=== PATIENT | female | born 1950 | race Caucasian/White ===

== ENCOUNTER 2022-10-31 19:44 | Observation (INO) | payer MEDICARE, SELFPAY ==
[2022-10-31] VITALS (10 sets, daily range): BP systolic 145–192; BP diastolic 67–113; PULSE 71–155; RESP 12–19; TEMP 36.6–36.8; O2SAT 94–97; BMI 25.7; BMI 26.4
--- NOTE | 2022-10-31 20:04 | EKG12_ITS ---
Test Reason : DYSRHYTHMIA Blood Pressure : / mmHG Vent. Rate : 157 BPM Atrial Rate : 174 BPM P-R Int : 000 ms QRS Dur : 064 ms QT Int : 280 ms P-R-T Axes : 000 065 044 degrees QTc Int : 452 ms Atrial fibrillation Nonspecific ST abnormality Abnormal ECG Confirmed by SHARLENE DORANTES, COY ([id number]), editor sound SAGRARIO CORRALES ([id number]) on 11/01/2022 10:21:42 AM Referred By: YONNY Confirmed By:COY SU MD
--- NOTE | 2022-10-31 20:11 | EX.ED.DYSGE1 ---
HPI History of Present Illness Chief Complaint: Palpitations Informant: patient Narrative Narrative: Presents with sudden palpitations 2 PM after riding her bike for an hour. No chest pains no lightheaded symptoms. No recent cough. History of hypertension on medications. Denies diabetes heart failure or stroke history. She states 2 weeks ago had similar symptoms lasting for 2 hours self-limiting afterwards. She did not get evaluated anywhere. No history of dysrhythmias. Symptoms returned and felt similar today. Prior similar symptoms: Yes PFSH PFSH Medical History (Updated 11/01/22 @ 00:[address] Trevor Cordero DO) HTN (hypertension) Kidney stones Overweight Home Medications lisinopril 10 mg tablet 10 mg PO DAILY 10/31/22 [History Last Taken Unknown] Allergy/AdvReac Type Severity Reaction Status Date / Time No Known Allergies Allergy Verified 10/31/22 23:25 Family History (Updated 10/31/22 @ 23:[address] Meaghan Almonte MD) Mother Hypertension CVA (cerebral vascular accident) Father Heart disease CAD (coronary artery disease) Myocardial infarction Surgical History History of dental surgery Social History (Updated 10/31/22 @ 23:[address] Meaghan Almonte MD) household members: spouse Smoking Status: Never smoker alcohol intake: never substance use type: does not use ROS ROS ED Constitutional Constitutional ED: Denies chills, fever(s) or sweats Eyes Eyes: Denies change in vision ENT ENT ED: Denies dysphagia or sore throat Cardiovascular Cardiovascular: Reports palpitations; Denies chest pain, leg edema or racing heartbeat Respiratory/Chest Respiratory/Chest: Denies cough, dyspnea or dyspnea on exertion Gastrointestinal Gastrointestinal: Denies abdominal pain, diarrhea, nausea or vomiting Genitourinary Genitourinary ED: Denies dysuria, hematuria or urinary frequency Musculoskeletal Musculoskeletal: Denies back pain, extremity pain or neck pain Integumentary Denies rash or wounds Neurologic Neurologic: Denies headache(s), paresthesias or weakness EXAM Physical Exam Const Vital Signs: 10/31/22 19:45 10/31/22 19:56 10/31/22 19:58 Temperature 98.2 F Temperature Source Temporal Pulse Rate 71 138 H Respiratory Rate 16 16 Respiratory Effort Normal Respiratory Pattern Normal Blood Pressure 177/95 H 187/107 H Blood Pressure Mean 122 133 Pulse Ox 97 97 Oxygen Delivery Method Room Air Room Air 10/31/22 20:20 10/31/22 20:26 10/31/22 20:31 Temperature Temperature Source Pulse Rate 155 H 100 105 H Respiratory Rate 16 12 12 Respiratory Effort Respiratory Pattern Blood Pressure 192/89 H 157/99 H 167/107 H Blood Pressure Mean 123 118 127 Pulse Ox 96 96 96 Oxygen Delivery Method Room Air Room Air Room Air 10/31/22 20:37 10/31/22 21:00 10/31/22 22:00 Temperature Temperature Source Pulse Rate 108 H 110 H 90 Respiratory Rate 12 19 H 14 Respiratory Effort Respiratory Pattern Blood Pressure 147/113 H 156/87 H 153/67 H Blood Pressure Mean 124 110 95 Pulse Ox 96 94 96 Oxygen Delivery Method Room Air Room Air Room Air Positive well nourished and well developed General Appearance ED: well developed and NAD HEENT Reports moist mucous membranes normocephalic and atraumatic Eyes PERRL, EOMs intact bilaterally and conjunctivae normal General Eye ED: Yes normal appearance of both eyes Neck no lymphadenopathy and supple General: Negative for tenderness Chest Wall Chest: Negative for tenderness Resp normal respiratory effort and normal air movement Effort and Inspection: symmetric chest movement; Negative for respiratory distress Cardio no murmurs Rate: tachycardic Rhythm: abnormal rhythm Peripheral Pulses: pulses 2+ throughout GI normal to inspection, nondistended, normoactive bowel sounds and non-tender Palpation: Negative for guarding or rebound tenderness present Back/Spine no CVA tenderness and no thoracic nor lumbar tenderness Extremity normal to inspection General Extremety ED: Negative for edema or tenderness General Extremity: Negative for edema Neuro oriented x3 and no sensory deficits noted Sensorium / Orientation: awake and alert Skin no rashes or lesions noted and no wounds MDM MDM MDM Narrative Medical decision making narrative: Interventions / MDM: Differential diagnosis: Cardiac dysrhythmia, palpitations Diagnosis considered but do not suspect: N/A My EKG interpretation: EKG: A-fib RVR 157, no ST or T wave changes QTc 452. Imaging independently reviewed and interpreted by myself: 1 view chest x-ray: No acute process External documents reviewed: N/A Test considered but not ordered:N/A ED course: Patient present A-fib with RVR blood pressure 177 systolic on arrival. She is given Lopressor IV x3 heart rate would go down to the 90s low 100s she was given 50 mg oral metoprolol reevaluation with systolic blood pressure 140. Labs obtain electrolytes were normal she had a TSH of less than 0.01. T4 level is sent and pending. Hemoglobin 14.6. Re-evaluation: stable. Chads 2 Vascore is a 3. Heart rate well controlled still in A-fib on the quality assurance monitor body. I discussed with hospitalist Dr. Almonte for admission to PCU. Free T4 returned normal. She reports with the findings likely subclinical hyperthyroidism. Disposition discussed with patient/family/significant other: Case discussed with consulting clinician: Hospitalist Dr. Alomnte Lab Data Attestation: I reviewed the patient's lab results. Labs: Laboratory Results - last 24 hr 10/31/22 10/31/22 10/31/22 20:10 20:10 20:10 WBC 7.6 RBC 5.05 Hgb 14.6 Hct 43.6 MCV 86.3 MCH 28.9 MCHC 33.5 RDW Std Deviation 39.6 RDW Coeff of Adeline 12.6 Plt Count 267 MPV 9.7 Immature Gran % (Auto) 0.300 Neut % (Auto) 54.3 Lymph % (Auto) 34.0 [place] % (Auto) 8.7 Eos % (Auto) 2.2 Baso % (Auto) 0.5 Absolute Neuts (auto) 4.1 Absolute Lymphs (auto) 2.58 Nucleated RBC % 0 PT 12.1 INR 0.9 APTT 26.2 Sodium 142 Potassium 3.8 Chloride 109 H Carbon Dioxide 25.0 Anion Gap 8 BUN 17 Creatinine 1.04 H Estim Creat Clear Calc 39.26 Est GFR (MDRD) Af Amer 67 Est GFR (MDRD) Non-Af 55 L BUN/Creatinine Ratio 16.3 Glucose 125 H Calcium 9.5 Magnesium TSH < 0.01 L Free T4 10/31/22 10/31/22 20:10 20:10 WBC RBC Hgb Hct MCV MCH MCHC RDW Std Deviation RDW Coeff of Adeline Plt Count MPV Immature Gran % (Auto) Neut % (Auto) Lymph % (Auto) Stafford % (Auto) Eos % (Auto) Baso % (Auto) Absolute Neuts (auto) Absolute Lymphs (auto) Nucleated RBC % PT INR APTT Sodium Potassium Chloride Carbon Dioxide Anion Gap BUN Creatinine Estim Creat Clear Calc Est GFR (MDRD) Af Amer Est GFR (MDRD) Non-Af BUN/Creatinine Ratio Glucose Calcium Magnesium 2.1 TSH Free T4 1.25 Radiography Diagnostic Testing: Clinical Impression(s) from Imaging Studies Chest X-Ray 10/31/22 20:13 IMPRESSION: No acute radiographic abnormalities. Electronically Signed: Vladimir Ayala MD at 20:42 EDT , Discharge Plan Dx/Rx/DC Orders Clinical Impression: Atrial fibrillation with RVR, Subclinical hyperthyroidism Disposition Disposition: Acute Care Hospital [facility] Discharge Date/Time: 10/31/22 23:21
--- NOTE | 2022-10-31 20:13 | RAD_ITS ---
INDICATION: a fib EXAMINATION/TECHNIQUE: X-RAY - XR Chest 1 View COMPARISON: None. FINDINGS: The lungs are clear. Tortuous and calcified thoracic aorta. The heart is not enlarged. No pleural effusion or pneumothorax. Degenerative changes of the thoracic spine. RAD/Chest 1 View (Portable) IMPRESSION: No acute radiographic abnormalities. Electronically Signed: Vladimir Ayala MD at 20:42 EDT ,
[2022-10-31 20:18] LABS: Absolute Lymphocyte Count 2.58 X10^3/uL (0.83-4.51); Absolute Neutrophil Count 4.1 X10^3/uL (2.0-7.7); Basophil# 0.04 X10^3/uL; Basophil% 0.5 % (0-1); Eosinophil# 0.17 X10^3/uL; Eosinophils% 2.2 % (0-5); Hematocrit 43.6 % (37-47); Hemoglobin 14.6 g/dL (12.0-15.0); Lymphocyte # 2.58 X10^3/ul (0.83-4.51); Mean Corp Hgb Conc 33.5 g/dL (32-36); Mean Corpuscular Hgb 28.9 pg (27.0-32.0); Mean Corpuscular Volume 86.3 fL (81-99); Mean Platelet Vol. 9.7 fl (6.2-12.0); Monocyte# 0.66 X10^3/uL; Monocyte% 8.7 % (0-10); NRBC Flagged by Analyzer 0 % (0-5); Neutrophil # 4.12 X10^3/uL (2.7-7.7); Neutrophil % 54.3 % (47-70); Platelet Count 267 K/mm3 (150-450); RBC Distribution Width CV 12.6 % (11.6-14.6); RBC Distribution Width SD 39.6 fl (35.1-43.9); Red Blood Count 5.05 M/mm3 (4.2-5.4); White Blood Count 7.6 K/mm3 (4.4-11.0)
[2022-10-31] MEDS: Metoprolol Tartrate 5 MG/5 ML Vial IV ×3 (20:21→20:34)
[2022-10-31 20:32] LABS: International Normalized Ratio 0.9; Prothrombin Time (Protime)PT. 12.1 SECONDS (11.7-14.9)
[2022-10-31 20:33] LABS: Partial Thromboplast Time 26.2 Seconds (24.1-36.2)
[2022-10-31 20:48] LABS: Anion Gap 8 (5-15); BUN 17 mg/dL (7-18); BUN/Creat Ratio 16.3 RATIO (10-20); Calcium,Total 9.5 mg/dL (8.5-10.1); Chloride 109 mmol/L (98-107); Creatinine, Serum 1.04 mg/dL (0.55-1.02); EST Glomerular Filtration Rate 55 mL/min (>60); Est Glom Filt Rate - Afr Amer 67 mL/min (>60); Estimated Creatinine Clearance 39.26 ml/min; Glucose 125 mg/dL (74-106); Potassium 3.8 mmol/L (3.5-5.1); Sodium Level 142 mmol/L (136-145); Thyroid Stim Hormone (TSH) < 0.01 uIU/mL (0.358-3.74)
[2022-10-31] MEDS: Metoprolol Tartrate 25 MG Tablet 50 MG PO (20:59)
[2022-10-31 22:18] LABS: T4 Free Direct 1.25 ng/dL (0.76-1.46)
--- NOTE | 2022-10-31 22:27 | HP.PCM.HOS_ITS ---
HPI - General General Date of Admission: 10/31/22 Date of Service: 10/31/22 Chief Complaint: Palpitations, recurrent. HPI Narrative The patient is a 72 y/o F w/ PMHx: HTN, ? CKD who presents to the [facility] ED on 10/31/22 with history of onset of sudden palpitations approximately 2 PM following riding her bike with no lightheadedness, dizziness or chest discomfort with similar episode approximately 2 weeks prior which lasted 2 hours and resol ed following this however given her symptoms returned prompted ED evaluation. Again she states she remained asymptomatic except for sensation of palpitations/racing heart. She notes aside from these 2 events this is never happened prior. Work-up in the ED included T98.2, heart rate initially 71 h owever increased up to 155, most recently 110, BP initially 177/95 with most recent repeat 156/87, respiratory rate 16, 97% on room air, CBC with WBC 7.6, hemoglobin 14.6, platelet 267 without marked shift, unremarkable coags, BMP with chloride 109, BUN/creatinine 17/1.04, glucose 125, TSH less than 0.01 however free T4 1.25, chest x-ray with no acute cardiopulmonary findings, EKG with new onset atrial fibrillation with RVR with no acute evidence of ischemia. In the ED patient ministered IV Lopressor as well as metoprolol tartrate 50 mg p.o. x1. [facility] Medical History (Updated 10/31/22 @ 23:[address] Meaghan Almonte MD) HTN (hypertension) Kidney stones Overweight Home Medications lisinopril 10 mg tablet 10 mg PO DAILY 10/31/22 [History Last Taken Unknown] Allergy/AdvReac Type Severity Reaction Status Date / Time No Known Allergies Allergy Verified 10/31/22 19:46 Family History (Updated 10/31/22 @ 23:[address] Meaghan Almonte MD) Mother Hypertension CVA (cerebral vascular accident) Father Heart disease CAD (coronary artery disease) Myocardial infarction Surgical History (Updated 10/31/22 @ 23:[address] Meaghan Almonte MD) History of dental surgery Social History (Updated 10/31/22 @ 23:[address] Meaghan Almonte MD) household members: spouse Smoking Status: Never smoker alcohol intake: never substance use type: does not use ROS ROS Narrative Admission Review of Systems: CONSTITUTIONAL: No weight loss, fever, chills, weakness or fatigue. HEENT: Eyes: No visual loss, blurred vision, double vision or yellow sclerae. Ears, Nose, Throat: No hearing loss, sneezing, congestion, runny nose or sore throat. SKIN: No rash or itching, lesions, wounds. CARDIOVASCULAR: + Palpitations. No chest pain, chest pressure or chest discomfort, edema, orthopnea, syncopal events. RESPIRATORY: No shortness of breath, cough or sputum, wheezing, hemoptysis. GASTROINTESTINAL: No anorexia, nausea, vomiting or diarrhea, abdominal pain, melena, BRBPR. GENITOURINARY: No dysuria, frequency, urgency or retention. NEUROLOGICAL: No headache, dizziness, syncope, paralysis, ataxia, numbness or tingling in the extremities, focal weakness, change in bowel or bladder control, seizure. MUSCULOSKELETAL: + muscle, back pain, joint pain or stiffness. HEMATOLOGIC: No anemia, bleeding or bruising. LYMPHATICS: No enlarged nodes. No history of splenectomy. PSYCHIATRIC: No history of depression or anxiety. ENDOCRINOLOGIC: No reports of sweating, cold or heat intolerance. No polyuria or polydipsia. ALLERGIES: No history of asthma, hives, eczema or rhinitis. Vital Signs Vital Signs Vital Signs: 10/31/22 19:45 10/31/22 19:56 10/31/22 19:58 Temperature 98.2 F Temperature Source Temporal Pulse Rate 71 138 H Respiratory Rate 16 16 Respiratory Effort Normal Respiratory Pattern Normal Blood Pressure 177/95 H 187/107 H Blood Pressure Mean 122 133 Pulse Ox 97 97 Oxygen Delivery Method Room Air Room Air 10/31/22 20:20 10/31/22 20:26 10/31/22 20:31 Temperature Temperature Source Pulse Rate 155 H 100 105 H Respiratory Rate 16 12 12 Respiratory Effort Respiratory Pattern Blood Pressure 192/89 H 157/99 H 167/107 H Blood Pressure Mean 123 118 127 Pulse Ox 96 96 96 Oxygen Delivery Method Room Air Room Air Room Air 10/31/22 20:37 10/31/22 21:00 10/31/22 22:00 Temperature Temperature Source Pulse Rate 108 H 110 H 90 Respiratory Rate 12 19 H 14 Respiratory Effort Respiratory Pattern Blood Pressure 147/113 H 156/87 H 153/67 H Blood Pressure Mean 124 110 95 Pulse Ox 96 94 96 Oxygen Delivery Method Room Air Room Air Room Air Weight Weight: 145 lb 6 oz Body Mass Index (BMI) 25.7 Physical Exam Narrative Physical Examination: General: Awake, alert, oriented x 3 and cooperative, seated upright in the ED bed in no apparent distress, palpitations improving with rate control. Skin: Normal color, normal turgor, no icterus, no cyanosis. HEENT: AT/NC, EOMI, PERRLA, MMM, no carotid bruits or JVD noted. Lungs: CTA bilaterally, moderate effort, mild decrease BL bases, no rales, ronchi or wheezing. Heart: Irregular, currently rate controlled; no gallop, rub audible. Abdomen: Soft, overweight, NTTP, ND, normal BS, no HSM. Extremities: No cyanosis, clubbing, or edema. Neurological: Patient awake, alert, oriented as noted, cognitive function intact; pupils equally reactive to light and accommodation, cranial nerves II- XII grossly normal, moving all 4 extremities, no focal deficits, strength preserved. Psychiatric: Affect appears normal, no acute evidence of depressive or anxiety feelings. Results Lab / Micro Data Result Diagrams: 10/31/22 20:10 10/31/22 20:10 Labs: Laboratory Results - last 24 hr 10/31/22 20:10: WBC 7.6, RBC 5.05, Hgb 14.6, Hct 43.6, MCV 86.3, MCH 28.9, MCHC 33.5, RDW Std Deviation 39.6, RDW Coeff of Adeline 12.6, Plt Count 267, MPV 9.7, Immature Gran % (Auto) 0.300, Neut % (Auto) 54.3, Lymph % (Auto) 34.0, [place] % (Auto) 8.7, Eos % (Auto) 2.2, Baso % (Auto) 0.5, Absolute Neuts (auto) 4.1, Absolute Lymphs (auto) 2.58, Nucleated RBC % 0 10/31/22 20:10: PT 12.1, INR 0.9, APTT 26.2 10/31/22 20:10: Sodium 142, Potassium 3.8, Chloride 109 H, Carbon Dioxide 25.0, Anion Gap 8, BUN 17, Creatinine 1.04 H, Estim Creat Clear Calc 39.26, Est GFR (MDRD) Af Amer 67, Est GFR (MDRD) Non-Af 55 L, BUN/Creatinine Ratio 16.3, Gluc ose 125 H, Calcium 9.5, TSH < 0.01 L 10/31/22 20:10: Free T4 1.25 Radiology Impression Chest X-Ray 10/31/22 20:13 IMPRESSION: No acute radiographic abnormalities. Electronically Signed: Vladimir Ayala MD at 20:42 EDT , Assessment & Plan Assessment/Plan (1) Atrial fibrillation with RVR: (2) Subclinical hyperthyroidism: PLAN: Plan The patient is a 72 y/o F w/ PMHx: HTN, ? CKD who presents to the [facility] ED on 10/31/22 with history of onset of sudden palpitations approximately 2 PM following riding her bike with no lightheadedness, dizziness or chest discomfort with similar episode approximately 2 weeks prior which lasted 2 hours and resolved following this however given her symptoms returned prompted ED evaluation. #1. New Onset Paroxsymal atrial fibrillation w/ RVR: EKG in ED w/ atrial fibrillation w/ RVR. Patient administered IV Lopressor and oral in ED. Will admit to PCU, maintain on telemetry, obtain cardiac enzyme serial set, obtain magnesium level, obtain ECHO, TSH/FT4 obtained with as noted subclinical hyperthyroidism. CHADs scoring low thus could consider aspiration or anticoagulation, however in the interim pending further work-up will maintain on therapeutic lovenox. Given new onset to assure early follow-up per patient and family preference will request Cardiology consultation. #2. Subclinical Hyperthyroidism: TSH > 0.01, free T4 1.25 thus would be consistent with subclinical hyperthyroidism but given presentation pending work- up as noted #1 may need to consider initiation of more early further evaluation but will await work-up #1 as noted. #3. Possible Chronic Kidney Disease Stage III unclear subtype based on current presentation: Admission BUN/Cr 17/1.04, unclear baseline, unclear if this is acute or if patient does have underlying chronic kidney disease, GFR currently 55, will repeat level in a.m. to further ascertain. #4. Hypertension: Continue home regimen including lisinopril, will maintain on oral metoprolol given responses noted #1 with further dose adjustments as needed, PRN hydralazine. #5. Overweight: Weight loss and lifestyle changes encouraged. #6. DVT prophylaxis: We will maintain on therapeutic Lovenox pending further evaluation as noted. #7. CODE status: Patient does not have healthcare power of contract attorney nor living will in place. Her who is present however she notes would be her decision-maker if she was unable. Discussed CODE status at length including difference between FULL code, DNR-CCA and DNR-CC status. Following discussions about the differences in these status, requested Full Code status. Advanced Care Planning Face to Face Time: 16 minutes. Admission Evaluation Time spent evaluating chart, patient history, patient e valuation, care planning and discussion with specialists: 55 minutes. Charges/Coding Visit Charges Inpatient E&M: 57894 Init Hosp L2 Procedures Hospitalists Procedures: 66737 Advncd Care Plan 30 Min
[2022-10-31 22:58] LABS: Magnesium 2.1 mg/dL (1.6-2.6)
--- NOTE | 2022-10-31 23:18 | ECHOD_ITS ---
Reason For Study: ATRIAL FIB Procedure This was a 2D Doppler, Color Flow transthoracic echocardiogram. Exam performed portable in patient room. Left Ventricle Normal LV size. Left ventricular systolic function is normal. The estimated ejection fraction is 65 %. Normal diastology for age. No regional wall motion abnormalities noted. Right Ventricle Normal RV size. Normal systolic function. Atria Normal left atrium. Normal right atrium. Mitral Valve Normal mitral valve. Tricuspid Valve Normal tricuspid valve. Aortic Valve Trisinus/trileaflet aortic valve. Normal aortic valve. Pulmonic Valve Normal pulmonic valve. Great Vessels Normal aortic root. The pulmonary artery is normal size. Normal inferior vena cava. Pericardium/Pleural No pericardial effusion. MMode/2D Measurements & Calculations LVIDd: 4.2 cm IVSd: 0.79 cm LVOT diam: 2.0 cm LVIDs: 2.5 cm LVPWd: 0.71 cm LVOT area: 3.1 cm2 RVDd: 2.6 cm FS: 39.9 % Ao root diam: 2.7 cm LAV(MOD-bp): 43.9 ml LVAd ap4: 19.8 cm2 LAV(MOD-bp) Indexed: 26.0 ml/m2 LVLd ap4: 7.2 cm LAV(MOD-sp2): 38.5 ml EDV(MOD-sp4): 44.5 ml LAV(MOD-sp4): 47.3 ml EDV(sp4-el): 46.0 ml LVAs ap4: 10.1 cm2 LVLs ap4: 5.9 cm ESV(MOD-sp4): 15.5 ml ESV(sp4-el): 14.7 ml EF(MOD-sp4): 65.2 % EF(sp4-el): 68.0 % SV(MOD-sp4): 29.0 ml SV(sp4-el): 31.3 ml LA A4 area: 17.9 cm2 LA dimension(2D): 3.3 cm RA A4 area: 15.2 cm2 Time Measurements MV dec time: 0.18 sec Doppler Measurements & Calculations MV E max jey: 94.3 cm/sec Lat Peak E' Jey: 13.3 cm/sec Med Peak E' Jey: 7.1 cm/sec MV A max jey: 75.3 cm/sec E/E' lat: 7.1 E/E' med: 13.3 MV E/A: 1.3 MV V2 max: 102.1 cm/sec Ao V2 max: 212.0 cm/sec MV max P.2 mmHg MV dec slope: 523.2 cm/sec2 Ao max P.0 mmHg MV V2 mean: 65.2 cm/sec Ao V2 mean: 143.7 cm/sec MV mean P.9 mmHg Ao mean P.4 mmHg MV V2 VTI: 27.2 cm Ao V2 VTI: 45.9 cm AV (velocity ratio): 0.64 MVA(VTI): 3.3 cm2 KERI(I,D): 2.0 cm2 KERI(V,D): 1.9 cm2 LV V1 max: 132.0 cm/sec SV(LVOT): 90.0 ml LV V1 max P.0 mmHg LV V1 mean P.2 mmHg LV V1 mean: 97.2 cm/sec LV V1 VTI: 29.3 cm ECHO/Echo Complete Interpretation Summary Normal LV size. Left ventricular systolic function is normal. The estimated ejection fraction is 65 %. Structurally normal valves. Ordering Physician: Meaghan Almonte Referring Physician: JUNG FUNK Performed By: Sandee Houston RCS
[2022-10-31] MEDS: 0.9% Normal Saline 1,000 ML 100 ML IV (23:32)
[2022-10-31] MEDS: 0.9% Saline Lock 10 ML Syringe IV (23:32)
[2022-10-31] MEDS: Enoxaparin 80 MG/0.8 ML Syringe 70 MG SC (23:40)
[2022-11-01 00:06] LABS: Troponin-I HS 8 pg/mL (3.0-54.0)
[2022-11-01 01:25] LABS: Troponin-I HS 10 pg/mL (3.0-54.0)
[2022-11-01 05:00] VITALS: BP 150/78; PULSE 82; RESP 18; TEMP 36.7; O2SAT 96
[2022-11-01 05:11] VITALS: BMI 26.9
[2022-11-01 06:24] LABS: Absolute Lymphocyte Count 2.22 X10^3/uL (0.83-4.51); Absolute Neutrophil Count 2.9 X10^3/uL (2.0-7.7); Basophil# 0.02 X10^3/uL; Basophil% 0.3 % (0-1); Eosinophil# 0.16 X10^3/uL; Eosinophils% 2.7 % (0-5); Hematocrit 41.5 % (37-47); Hemoglobin 13.6 g/dL (12.0-15.0); Lymphocyte # 2.22 X10^3/ul (0.83-4.51); Mean Corp Hgb Conc 32.8 g/dL (32-36); Mean Corpuscular Hgb 28.9 pg (27.0-32.0); Mean Corpuscular Volume 88.1 fL (81-99); Monocyte# 0.52 X10^3/uL; Monocyte% 8.9 % (0-10); NRBC Flagged by Analyzer 0 % (0-5); Neutrophil # 2.91 X10^3/uL (2.7-7.7); Neutrophil % 49.9 % (47-70); Platelet Count 242 K/mm3 (150-450); RBC Distribution Width CV 12.6 % (11.6-14.6); RBC Distribution Width SD 40.7 fl (35.1-43.9); Red Blood Count 4.71 M/mm3 (4.2-5.4); White Blood Count 5.8 K/mm3 (4.4-11.0)
--- NOTE | 2022-11-01 06:44 | EKG12_ITS ---
Test Reason : CONVERTED TO NORMAL SYNUS Blood Pressure : / mmHG Vent. Rate : 075 BPM Atrial Rate : 075 BPM P-R Int : 158 ms QRS Dur : 070 ms QT Int : 376 ms P-R-T Axes : 074 061 055 degrees QTc Int : 419 ms Normal sinus rhythm Normal ECG When compared with ECG of 31-OCT-2022 19:52, MANUAL COMPARISON REQUIRED, DATA IS UNCONFIRMED Confirmed by SHARLENE DORANTES, COY ([id number]), video editor SAGRARIO CORRALES ([id number]) on 11/02/2022 9:07:05 AM Referred By: RIMMA Confirmed By:COY SU MD
[2022-11-01 07:00] LABS: ALB/GLOB Ratio 0.9 RATIO (0.9-2.4); AST(SGOT) 19 U/L (15-37); Alanine Aminotransfer ALT/SGPT 31 U/L (13-56); Albumin, Serum 3.1 g/dL (3.2-5.0); Alkaline Phosphatase 66 U/L (45-117); Anion Gap 7 (5-15); BUN 20 mg/dL (7-18); BUN/Creat Ratio 27.6 RATIO (10-20); Calcium,Total 8.6 mg/dL (8.5-10.1); Chloride 113 mmol/L (98-107); Cholesterol 243 mg/dL (200); Creatinine, Serum 0.72 mg/dL (0.55-1.02); EST Glomerular Filtration Rate 84 mL/min (>60); Est Glom Filt Rate - Afr Amer 101 mL/min (>60); Estimated Creatinine Clearance 39.04 ml/min; Globulin 3.3 g/dL (2.2-4.2); Glucose 116 mg/dL (74-106); High Density Lipoprotein 47 mg/dL; Potassium 3.6 mmol/L (3.5-5.1); Protein, Total 6.4 g/dL (6.4-8.2); Sodium Level 144 mmol/L (136-145); Triglycerides 121 mg/dL; Troponin-I HS 9 pg/mL (3.0-54.0); Very Low Density Lipoprotein 24 mg/dL (5-40)
[2022-11-01 07:05] VITALS: O2SAT 96
[2022-11-01 09:26] VITALS: BP 148/57; PULSE 83; RESP 16; TEMP 36.7; O2SAT 95
[2022-11-01 09:32] VITALS: BP 148/57; PULSE 83
[2022-11-01] MEDS: Enoxaparin 80 MG/0.8 ML Syringe 70 MG SC (09:32)
[2022-11-01] MEDS: Metoprolol Tartrate 25 MG Tablet PO (09:32)
[2022-11-01] MEDS: Lisinopril 10 MG Tablet PO (09:33)
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
--- NOTE | 2022-11-01 14:30 | DCINST_ITS ---
Discharge Instructions Diet Discharge Diet: No restrictions Activity Discharge Activity: Return to Normal Activity Weight Bearing Status: Full weight bearing Follow Up Care Test Results: Test results from this visit will be discussed in further detail at your follow- up appointment, if applicable. Discharge Plan Admission Admit Date/Time: 10/31/22 22:35 Primary Reason for Your Visit: Atrial fibrillation Attending Provider: Trey Zapata Primary Care Provider: Hilary Ku Consulting Providers: Sheree Biswas ; Meaghan Almonte Instructions Additional Instructions / Restrictions: Do not take any ibuprofen or Aleve or arthritis medication while on Eliquis, t mckay Tylenol only for pain If you have any abnormal bleeding in the stool, urine, or if you throw up blood or have a severe nosebleed, contact your physician You will need your thyroid lab tests rechecked in 3 to 4 weeks Discharge Orders/Prescriptions Prescriptions: New Eliquis 5 mg Tablet 5 mg PO BID Qty: 0 0RF metoprolol tartrate 25 mg Tablet 25 mg PO BID Qty: 0 0RF Continued lisinopril 10 mg tablet 10 mg PO DAILY Label Comments: TAKE ONE TABLET BY MOUTH DAILY IN THE EVENING Referrals / Follow Up: Hadley Nguyen MD [Med Staff - Active Staff] - See Referral Note (As directed) Hilary Ku PA [Primary Care Provider] - Within 2 Weeks Disposition Disposition (needs filled in before D/C Order can be placed): Home, Self Care
[2022-11-01 14:37] VITALS: BP 148/61; PULSE 73; RESP 16; TEMP 36.7; O2SAT 97
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
--- NOTE | 2022-11-01 15:27 | CASEMGMT ---
RN CM notified by hospitalist of Eliquis cost at discharge. First fill will be $150 and then $47 after. RN CM in to patient's room to discuss discharge needs. Patient denied needs at discharge. [employer] savings card provided to patient. Patient had no further questions or concerns at this time.
--- NOTE | 2022-11-01 15:32 | PHA.DC.MC ---
Pharmacy Service has performed discharge medication reconciliation and counseling for this patient. 1. APIXABAN 5MG PO BID 2. METOPROLOL TARTRATE 25MG PO BID The patient's discharge medication list was reviewed for discrepancies and discrepancies were resolved. Home Medications lisinopril 10 mg tablet 10 mg PO DAILY 10/31/22 apixaban 5 mg tablet (Eliquis) 5 mg PO BID #0 tabs 11/01/22 metoprolol tartrate 25 mg tablet 25 mg PO BID #0 tabs 11/01/22 The patient was counseled on the following discharge medications and changes in medications for homegoing were reviewed. The Reason for Use, instructions for use, and potential side effects were reviewed for all new medications. The patient's questions regarding all of their medications were answered. The patient was able to verbally demonstrate an understanding of their discharge medications.
== END 2022-11-01 15:00 | disposition home or self-care (01) ==
LOC: ED 22:18 → PCU 22:41
PROVIDERS: Admitting Provider Family Medicine; Emergency Provider Emergency Medicine; Visit Provider Internal Medicine
DX: I48.91 Unspecified atrial fibrillation (principal); E05.90 Thyrotoxicosis, unspecified without thyrotoxic crisis or storm; Z79.899 Other long term (current) drug therapy; I10 Essential (primary) hypertension
CPT/HCPCS: 36415; 71045; 80048; 80053; 80061; 83735; 84439; 84443; 84484; 85025; 85610; 85730; 93005; 93306; 94668; 96361; 96372; 96374; 99221; 99285; J7030; A4216; G0378

== ENCOUNTER 2023-04-12 17:24 | Emergency (ER) | payer MEDICARE, SELFPAY ==
[2023-04-12 17:27] VITALS: BP 212/83; PULSE 79; RESP 18; TEMP 36.1; O2SAT 97; BMI 25.4
[2023-04-12 17:36] VITALS: BP 202/89; PULSE 76
--- NOTE | 2023-04-12 17:55 | EDS_ITS ---
HPI History of Present Illness Chief Complaint: Hypertension Narrative Narrative: 72-year-old female presenting with elevated blood pressures. She is asymptomatic of this except for maybe him some mild flushing. Denies headache, nausea, paresthesia, chest pain, palpitations, shortness of breath. Patient dates she p.o. take her atenolol last night which is 25 mg. She states he called the nurse practitioner today and was told to double her lisinopril to 20 mg today. She told her that if her blood pressure did not come down to go to the emergency room. Patient states he took 20 mg of lisinopril at 230. She states her blood pressure did not come down in the last 3 hours so she came to the emergency room. Again she is asymptomatic. [facility] Medical History Atrial fibrillation with RVR Essential hypertension HTN (hypertension) Kidney stones Overweight Subclinical hyperthyroidism Home Medications lisinopril 10 mg tablet 10 mg PO DAILY 10/31/22 [History Last Taken Unknown] aspirin 81 mg tablet,delayed release (Adult Low Dose Aspirin) 81 mg PO DAILY 01/04/23 [History Last Taken Unknown] atenolol 25 mg tablet 25 mg PO QHS 04/12/23 [History Last Taken Unknown] Allergy/AdvReac Type Severity Reaction Status Date / Time No Known Allergies Allergy Verified 04/12/23 17:26 Family History Mother Hypertension CVA (cerebral vascular accident) Father Heart disease CAD (coronary artery disease) Myocardial infarction Surgical History History of dental surgery Social History household members: spouse Smoking Status: Never smoker alcohol intake: never substance use type: does not use ROS ROS ED Constitutional Constitutional ED: Denies chills, fever(s) or sweats Eyes Eyes: Denies blurry vision or change in vision ENT ENT ED: Denies ear pain or sore throat Cardiovascular Cardiovascular: Denies chest pain, palpitations or racing heartbeat Respiratory/Chest Respiratory/Chest: Denies cough, dyspnea or sputum Gastrointestinal Gastrointestinal: Denies abdominal pain, constipation, diarrhea, nausea or vomiting Genitourinary Genitourinary ED: Denies dysuria, hematuria or urinary frequency Musculoskeletal Musculoskeletal: Denies arthralgias, myalgias or neck pain Integumentary Denies abscess, Abrasions or rash Neurologic Neurologic: Denies headache(s), paresthesias or weakness Psychiatric Psychiatric: Denies anxiety, depression, suicidal ideation or suicidal thoughts Endocrine Endocrinology: Denies polydipsia or polyuria EXAM Physical Exam Const Vital Signs: 04/12/23 17:27 04/12/23 17:36 04/12/23 17:37 Temperature 97 F L Temperature Source Temporal Pulse Rate 79 76 Respiratory Rate 18 Respiratory Effort Normal Respiratory Pattern Normal Blood Pressure 212/83 H 202/89 H Blood Pressure Mean 126 126 Pulse Ox 97 Oxygen Delivery Method Room Air Positive well nourished General Appearance ED: NAD HEENT Reports moist mucous membranes Eyes PERRL and EOMs intact bilaterally Resp normal respiratory effort and clear to auscultation bilaterally Auscultation: Negative for rales, rhonchi or wheezes Cardio regular rate and regular rhythm GI normal to inspection, nondistended, normoactive bowel sounds Neuro oriented x3 and CN's II-XII intact bilaterally Sensorium / Orientation: alert Motor Exam: strength 5/5 throughout Psych mental status grossly normal Skin no rashes or lesions noted MDM MDM MDM Narrative Medical decision making narrative: Patient presenting with elevated blood pressures today. She states he did not check her blood pressure yesterday so she is not sure where she was at. She missed her dose of atenolol 25 mg p.o. nightly and has doubled her lisinopril about 3 hours ago. Patient's blood pressure is starting to come down. She is asymptomatic of this. She does not have any findings on physical exam and otherwise her vitals are stable. Discussed with her that the lisinopril may needs more time to start taking effect. We discussed taking her atenolol at bedtime and then taking half of her lisinopril in the morning and half of it in the evening. She will keep a blood pressure diary. She reports to me that her primary care physician is going to put her on 40 mg of lisinopril at some point tomorrow. I recommended she follow-up with her for those changes. Impression: 1. Hypertension Lab Data Attestation: I reviewed the patient's lab results. Discharge Plan Triage Chief Complaint: Hypertension ED Provider: Mark Negrete Dx/Rx/DC Orders Instructions: ED Hypertension, Established Prescriptions: No Action aspirin [Adult Low Dose Aspirin] 81 mg tablet,delayed release (DR/EC) 81 mg PO DAILY lisinopril 10 mg tablet 10 mg PO DAILY Patient Comments: TAKE ONE TABLET BY MOUTH DAILY IN THE EVENING atenolol 25 mg tablet 25 mg PO QHS Primary Care Provider: Hilary Ku Referrals: Hilary Ku PA [Primary Care Provider] - Disposition Disposition: Home, Self Care
[2023-04-12 18:00] VITALS: BP 198/89; RESP 18; O2SAT 99
== END 2023-04-12 18:01 | disposition home or self-care (01) ==
LOC: ED 17:53
PROVIDERS: Emergency Provider Student in an Organized Health Care Education/Training Program; Visit Provider Student in an Organized Health Care Education/Training Program
DX: I10 Essential (primary) hypertension (principal); Z79.899 Other long term (current) drug therapy
CPT/HCPCS: 99282

== ENCOUNTER → 2024-04-25 | Outpatient (CLI) | payer MEDICARE, SELFPAY | END | disposition home or self-care (01) | LOC: PSN 06:44 | PROVIDERS: Referring Provider Podiatrist Foot & Ankle Surgery; Visit Provider Podiatrist Foot & Ankle Surgery | DX: M79.2 Neuralgia and neuritis, unspecified (principal); M79.604 Pain in right leg; M79.605 Pain in left leg | CPT/HCPCS: 95886; 95912 ==

== ENCOUNTER 2024-10-13 21:17 | Emergency (ER) | payer MEDICARE, SELFPAY ==
[2024-10-13 21:17] VITALS: BP 199/83; PULSE 91; RESP 16; TEMP 36; O2SAT 97; BMI 24.3
--- NOTE | 2024-10-13 21:35 | EKG12_ITS ---
Test Reason : HTN Blood Pressure : */* mmHG Vent. Rate : 80 BPM Atrial Rate : 80 BPM P-R Int : 158 ms QRS Dur : 70 ms QT Int : 378 ms P-R-T Axes : 82 52 38 degrees QTcB Int : 435 ms Normal sinus rhythm Normal ECG Confirmed by Merrick Moon ([id number]), editorial writer SAGRARIO CORRALES ([id number]) on 10/19/2024 1:01:05 PM Referred By: SAN[place]ORD Confirmed By: Merrick Moon
[2024-10-13 21:42] LABS: Absolute Lymphocyte Count 1.66 X10^3/uL (0.83-4.51); Absolute Neutrophil Count 3.7 X10^3/uL (2.0-7.7); Basophil# 0.03 X10^3/uL; Basophil% 0.5 % (0-1); Eosinophil# 0.27 X10^3/uL; Eosinophils% 4.4 % (0-5); Hematocrit 38.6 % (37-47); Lymphocyte # 1.66 X10^3/ul (0.83-4.51); Lymphocyte % 26.9 % (19-41); Mean Corp Hgb Conc 36.3 g/dL (32-36); Mean Corpuscular Hgb 32.5 pg (27.0-32.0); Mean Corpuscular Volume 89.6 fL (81-99); Mean Platelet Vol. 9.3 fl (6.2-12.0); Monocyte# 0.49 X10^3/uL; NRBC Flagged by Analyzer 0 % (0-5); Neutrophil # 3.69 X10^3/uL (2.7-7.7); Neutrophil % 59.9 % (47-70); Platelet Count 257 K/mm3 (150-450); RBC Distribution Width CV 13.2 % (11.6-14.6); RBC Distribution Width SD 43.6 fl (35.1-43.9); Red Blood Count 4.31 M/mm3 (4.2-5.4); White Blood Count 6.2 K/mm3 (4.4-11.0)
--- NOTE | 2024-10-13 21:42 | RAD_ITS ---
PROCEDURE: CHEST 1 VIEW (PORTABLE) 10/13/2024 REASON FOR EXAM: CHEST PAIN TECHNIQUE: Frontal view of the chest. COMPARISON: 10/31/2022 FINDINGS: Hardware: None Heart: The heart size is normal. Lungs: No focal consolidation. No pneumothorax. No pleural effusion. Mild bibasilar atelectasis. Bones: The bones are unremarkable. Other: RAD/Chest 1 View (Portable) IMPRESSION: No Acute Findings. Reading Location: [facility]
[2024-10-13 21:55] LABS: Prothrombin Time (Protime)PT. 12.9 SECONDS (11.7-14.9)
[2024-10-13 22:04] LABS: Anion Gap 15 (5-15); BUN 18 mg/dL (4-19); BUN/Creat Ratio 17.1 RATIO (10-20); Carbon Dioxide 20.1 mmol/L (21.0-32.0); Chloride 104 mmol/L (98-108); Creatinine, Serum 1.03 mg/dL (0.70-1.20); EST Glomerular Filtration Rate 56 (>60); Estimated Creatinine Clearance 38.44 ml/min (50-250); Glucose 122 mg/dL (70-99); Potassium 3.8 mmol/L (3.3-5.1); Sodium Level 139 mmol/L (133-145); Troponin T High Sensitivity 10 ng/L (<=14)
[2024-10-13 22:09] VITALS: BP 163/78; PULSE 70; RESP 14; O2SAT 97
--- NOTE | 2024-10-13 22:10 | EDS_ITS ---
HPI History of Present Illness Chief Complaint: Hypertension Narrative Narrative: Chief complaint and HPI: Hypertension and chest pressure. 74-year-old female with past medical history of CAD status post PCI 09/08/2024 at [facility], atrial fibrillation, HTN presents for evaluation of hypertension and chest pressure. Patient states she has been doing well since her PCI. She has been taking all of her medication. She states this morning she felt off in which she took her blood pressure. She states her SBP was in the 190s. She states that she took her morning medications and her blood pressure improved. She states this evening she felt off again with some mild chest pressure. She states she took her blood pressure. SBP in the 190s. She took her evening lisinopril and a nitroglycerin. She currently denies any symptoms or chest pressure. She states all her symptoms have resolved. She denies any fever, chills, shortness of breath, cough, abdominal pain, nausea, vomiting. Review of systems: See HPI Medications: As listed on the chart Allergies: As listed on the chart PFSH: Per chart Vital signs: As listed on the chart. Reviewed. Physical exam: Gen: A&O x3, NAD Head: Normocephalic, atraumatic Eyes: No sclera icterus, conjunctiva clear ENT: Moist mucous membranes Neck: Trachea midline, No JVD CV: RRR, no murmurs, no peripheral edema Resp: Lungs CTA BL, no w/r/c GI: Abd soft, non-distended, non-tender, no r/r/g Musc: Full ROM, no deformity Skin: Warm, dry Neuro: Alert, oriented, grossly intact, sensation intact Psych: Cooperative, appropriate mood and affect [facility] Medical History (Updated 10/14/24 @ 00:[address] Chaz Ansari, DO) Essential hypertension Subclinical hyperthyroidism Atrial fibrillation with RVR Overweight HTN (hypertension) Kidney stones Home Medications ?Medication ?Instructions ?Recorded ?Last Taken ?Type lisinopril 10 mg tablet 20 mg PO BID 04/27/23 Unknow n History anastrozole 1 mg tablet 1 mg PO DAILY 10/13/2410/13 History aspirin 81 mg chewable tablet 1 tab PO DAILY 10/13/24 Unknown History atorvastatin 80 mg tablet 80 mg PO QHS 10/13/24 Unknow n History carvedilol 3.125 mg tablet 3.125 mg PO BID 10/13/24 Un known History clopidogrel 75 mg tablet 75 mg PO DAILY 10/13/24 Unkn own History isosorbide mononitrate 30 mg 30 mg PO DAILY 10/13/24 U nknown History tablet,extended release 24 hr nitroglycerin 0.4 mg sublingual 0.4 mg sublingual pauline na 10/13/24 Unknown History tablet pantoprazole 40 mg tablet,delayed 40 mg PO 10/13/24 Un known History release spironolactone 25 mg tablet 25 mg PO DAILY 10/13/24 Un known History thyroid (pork) 30 mg tablet (INVESTIGATIVE AGENT 30 mg PO DAILY 5 Unknown History Thyroid) Allergy/AdvReac Type Severity Reaction Status Date / Time No Known Allergies Allergy Verified 10/13/24 21:17 Family History Mother Hypertension CVA (cerebral vascular accident) Father Heart disease CAD (coronary artery disease) Myocardial infarction Surgical History (Updated 10/13/24 @ 21:32 by Leonard Bunn) H/O heart artery stent History of dental surgery Social History household members: spouse Smoking Status: Never smoker alcohol intake: never substance use type: does not use EXAM Physical Exam Const Vital Signs: 10/13/24 21:17 10/13/24 21:31 10/13/24 21:39 Temperature 96.8 F L Temperature Source Temporal Pulse Rate 91 Respiratory Rate 16 Respiratory Effort Normal Respiratory Pattern Normal Blood Pressure 199/83 H Blood Pressure Mean 121 Pulse Ox 97 Oxygen Delivery Method Room Air Room Air 10/13/24 22:09 10/13/24 23:28 Temperature Temperature Source Pulse Rate 70 71 Respiratory Rate 14 14 Respiratory Effort Respiratory Pattern Blood Pressure 163/78 H 162/68 H Blood Pressure Mean 106 99 Pulse Ox 97 96 Oxygen Delivery Method Room Air MDM MDM MDM Narrative Medical decision making narrative: 74-year-old female with past medical history of CAD status post PCI 09/08/2024 at [facility], atrial fibrillation, HTN presents for evaluation of hypertension and chest pressure. Patient states that she has had hypertension x 2 today. Second HTN episode was associated with chest pressure that is since resolved. On presentation, patient was hypertensive with SBP in the 190s. Triage protocols were placed. By the time I saw the patient most of her results have resulted. She is not having any chest pressure. Her blood pressure has improved to the SBP of the 160s. This is likely given that she took her normal medication. Differential diagnosis includes was not limited to hypertensive urgency, hypertensive emergency, suspect less likely ACS given she just had PCI. Cardiac workup was ordered in triage. CBC without leukocytosis or anemia. INR unremarkable. BMP relatively unremarkable. First troponin negative. Will await delta. Patient will be monitored in our emergency department until delta is obtained. Repeat troponin unremarkable. On reevaluation, patient is asymptomatic. Her blood pressures is improved. I suspect her symptoms are secondary to hypertension urgency. 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 Monitor blood pressure at home. Return precautions explained. Patient confirmed understanding of plan. Patient stable to discharge home. EKG: Interpreted by me/EM physician: EKG shows normal sinus rhythm without any acute ischemic changes. Heart rate 80 Diagnostic: Interpreted by me/EM physician: Chest x-ray without pneumonia, effusion, cardiomegaly, pneumothorax Impression: 1. Hypertension urgency 2. History of CAD and hypertension Lab Data Labs: Laboratory Results - last 24 hr 10/13/24 10/13/24 21:36 23:30 WBC 6.2 RBC 4.31 Hgb 14.0 Hct 38.6 MCV 89.6 MCH 32.5 H MCHC 36.3 H RDW Std Deviation 43.6 RDW Coeff of Adeline 13.2 Plt Count 257 MPV 9.3 Immature Gran % (Auto) 0.300 Neut % (Auto) 59.9 Lymph % (Auto) 26.9 [place] % (Auto) 8.0 Eos % (Auto) 4.4 Baso % (Auto) 0.5 Absolute Neuts (auto) 3.7 Absolute Lymphs (auto) 1.66 Nucleated RBC % 0 PT 12.9 INR 1.0 Sodium 139 Potassium 3.8 Chloride 104 Carbon Dioxide 20.1 L Anion Gap 15 BUN 18 Creatinine 1.03 Estim Creat Clear Calc 38.44 L Est GFR (MDRD) Non-Af 56 L BUN/Creatinine Ratio 17.1 Glucose 122 H Calcium 10.0 Troponin T High Sens 10 Troponin T Hi Sens 2 Hr 10 Radiography Diagnostic Testing: Clinical Impression(s) from Imaging Studies Chest X-Ray 10/13/24 21:42 IMPRESSION: No Acute Findings. Reading Location: [facility] Discharge Plan Triage Chief Complaint: Hypertension ED Provider: Chaz Ansari Dx/Rx/DC Orders Clinical Impression: Hypertensive urgency Instructions: ED Hypertension, Established Prescriptions: No Action lisinopril 10 mg tablet 20 mg PO BID anastrozole 1 mg tablet 1 mg PO DAILY atorvastatin 80 mg tablet 80 mg PO QHS isosorbide mononitrate 30 mg tablet extended release 24 hr 30 mg PO DAILY clopidogrel 75 mg tablet 75 mg PO DAILY spironolactone 25 mg tablet 25 mg PO DAILY carvedilol 3.125 mg tablet 3.125 mg PO BID pantoprazole 40 mg tablet,delayed release (DR/EC) 40 mg PO nitroglycerin 0.4 mg tablet, sublingual 0.4 mg sublingual aspirin 81 mg tablet,chewable 1 tab PO DAILY thyroid (pork) [INVESTIGATIVE AGENT Thyroid] 30 mg tablet 30 mg PO DAILY Primary Care Provider: Hilary Ku Referrals: Hadley Nguyen MD [Med Staff - Active Staff] - 3-5 Days Hilary Ku PA [Primary Care Provider] - 3-5 Days Activity Restrictions/Additional Instructions: Continue to monitor your blood pressure at home. Follow-up with cardiology and PCP. Return back to the ED if symptoms change or worsen. Print Language: Malian Disposition Disposition: Home, Self Care
[2024-10-13 23:28] VITALS: BP 162/68; PULSE 71; RESP 14; O2SAT 96
[2024-10-13 23:58] LABS: Troponin T High Sens 2 HR 10 ng/L (<=14)
[2024-10-14 00:15] VITALS: BP 114/55; PULSE 73; RESP 13; TEMP 36.6; O2SAT 99
== END 2024-10-14 00:16 | disposition home or self-care (01) ==
PROVIDERS: Emergency Provider Surgery; Visit Provider Surgery
DX: I16.0 Hypertensive urgency (principal); I48.91 Unspecified atrial fibrillation; I10 Essential (primary) hypertension; R07.89 Other chest pain; I25.10 Atherosclerotic heart disease of native coronary artery without angina pectoris; Z79.82 Long term (current) use of aspirin; Z79.02 Long term (current) use of antithrombotics/antiplatelets; Z79.899 Other long term (current) drug therapy; Z95.5 Presence of coronary angioplasty implant and graft
CPT/HCPCS: 71045; 80048; 84484; 85025; 85610; 93005; 99284; A4216